=== PATIENT | female | born 1980 | race Caucasian/White ===

== ENCOUNTER 2022-07-07 19:50 | Emergency (ER) | payer MEDICARE, MEDICAID ==
[~2022-07-07] VITALS: Ht 154 cm; Wt 85.2 kg
[2022-07-07] MEDS ORDERED: ONDANSETRON 4 MG/2 ML (SDV) Z0FRAN IVP STA (20:07)
[2022-07-07] MEDS ORDERED: NS IV 1000 ML 1,000 ML IV STA (20:07)
[2022-07-07] MEDS ORDERED: PANTOPRAZOLE 40 MG (PROTONIX) VIAL IV STA (20:07)
--- NOTE | 2022-07-07 20:09 | ED GI ---
General Chief Complaint: Abdominal/GI Problems Stated Complaint: N/V/D Source of Information: Patient, EMS History of Present Illness Date Seen by Provider: Jul 07, 2022 Time Seen by Provider: 19:50 Initial Comments 41-year-old female presenting with complaints of 3 days of diffuse abdominal aching and cramping associated with nausea, vomiting, diarrhea. She states that she feels like she has not been able to keep things down and while she has been having diarrhea she has not been urinating. She states that she has not been around anyone for sick contacts as far she knows. She did have food delivered by a door dash delivery. She denies eating anything different or new prior to onset of symptoms. She called EMS tonight because she felt she could not keep anything down at home and was concerned for dehydration. Timing/Duration: 2-3 Days Severity/Quality: Moderate, Aching, Cramping Location: Generalized Abdomen Activities at Onset: None Modifying Factors: Worsens With Eating, Worsens With Movement, Worsens With Palpation Associated Symptoms: No Back Pain, No Chest Pain, No Diaphoresis, No Fever/Chills, No Fatigue, No Headache, No Heartburn; Nausea/Vomiting; No Shortness of Air, No Swelling/Mass in Abdomen, No Syncope, No Weakness Allergies and Home Medications Allergies Coded Allergies: No Known Drug Allergies (Unverified , 07/07/22) Patient Home Medication List Home Medication List Reviewed: Yes Ondansetron (Ondansetron Odt) 4 Mg Tab.rapdis, 4 MG PO Q6H PRN for NAUSEA/VOMITING Prescribed by: RYAN MOLINA on 07/07/222202 Review of Systems Review of Systems Constitutional: see HPI EENTM: No Symptoms Reported Respiratory: No Symptoms Reported Cardiovascular: No Symptoms Reported Gastrointestinal: See HPI Genitourinary: Denies Pain; Other (felt she had decreased urine output) Musculoskeletal: no symptoms reported Skin: No rash Psychiatric/Neurological: No Symptoms Reported Endocrine: No Symptoms Reported Past Mdquzhk-Cpjvme-Ajgnho Hx Patient Social History Tobacco Use?: No Use of E-Cig and/or Vaping dev: No Substance use?: No Alcohol Use?: No Immunizations Up To Date First/Initial COVID19 Vaccinat: 2020 Second COVID19 Vaccination Daniel: 2020 Third COVID19 Vaccination Date: 2021 Past Medical History Surgery/Hospitalization HX: hypothyroid Physical Exam Vital Signs Vital Signs - First Documented 07/07/22 19:50 Temp 37.0 Pulse 97 Resp 20 B/P (MAP) 110/63 (79) Pulse Ox 94 O2 Delivery Room Air Capillary Refill : Height/Weight/BMI Height: '" Weight: lbs. oz. kg; BMI Method: General Appearance: no apparent distress, obese HEENT: No PERRL/EOMI (nystagmus that patient reports is chronic) Neck: non-tender, full range of motion, supple, normal inspection Respiratory: chest non-tender, lungs clear, normal breath sounds, no respir atory distress, no accessory muscle use Cardiovascular: normal peripheral pulses, regular rate, rhythm Gastrointestinal: soft, no pulsatile mass, abnormal bowel sounds (hypoactive); No distended, No guarding, No rebound; tenderness (diffuse tenderness to palpation) Rectal: deferred Extremities: normal range of motion, non-tender, normal capillary refill Neurologic/Psychiatric: alert, oriented x 3 Skin: normal color, warm/dry Progress/Results/Core Measures Results/Orders Lab Results Laboratory Tests Test 07/07/22 19:50 07/07/22 21:27 Range/Units White Blood Count 5.1 4.3-11.0 10^3/uL Red Blood Count 5.14 H 3.80-5.11 10^6/uL Hemoglobin 15.9 11.5-16.0 g/dL Hematocrit 46 35-52 % Mean Corpuscular Volume 89 80-99 fL Mean Corpuscular Hemoglobin 31 25-34 pg Mean Corpuscular Hemoglobin Concent 35 32-36 g/dL Red Cell Distribution Width 12.2 10.0-14.5 % Platelet Count 217 130-400 10^3/uL Mean Platelet Volume 9.6 9.0-12.2 fL Immature Granulocyte % (Auto) 0 % Neutrophils (%) (Auto) 56 42-75 % Lymphocytes (%) (Auto) 32 12-44 % Monocytes (%) (Auto) 9 0-12 % Eosinophils (%) (Auto) 2 0-10 % Basophils (%) (Auto) 1 0-10 % Neutrophils # (Auto) 2.9 1.8-7.8 10^3/uL Lymphocytes # (Auto) 1.7 1.0-4.0 10^3/uL Monocytes # (Auto) 0.5 0.0-1.0 10^3/uL Eosinophils # (Auto) 0.1 0.0-0.3 10^3/uL Basophils # (Auto) 0.0 0.0-0.1 10^3/uL Immature Granulocyte # (Auto) 0.0 0.0-0.1 10^3/uL Sodium Level 133 L 135-145 MMOL/L Potassium Level 3.8 3.6-5.0 MMOL/L Chloride Level 99 98-107 MMOL/L Carbon Dioxide Level 19 L 21-32 MMOL/L Anion Gap 15 H 5-14 MMOL/L Blood Urea Nitrogen 32 H 7-18 MG/DL Creatinine 0.92 0.60-1.30 MG/DL Estimat Glomerular Filtration Rate 80 BUN/Creatinine Ratio 35 Glucose Level 132 H 70-105 MG/DL Calcium Level 9.9 8.5-10.1 MG/DL Corrected Calcium 9.5 8.5-10.1 MG/DL Total Bilirubin 1.3 H 0.1-1.0 MG/DL Aspartate Amino Transf (AST/SGOT) 375 H 5-34 U/L Alanine Aminotransferase (ALT/SGPT) 252 H 0-55 U/L Alkaline Phosphatase 110 40-136 U/L Total Protein 8.6 H 6.4-8.2 GM/DL Albumin 4.5 3.2-4.5 GM/DL Lipase 14 8-78 U/L Urine Color YELLOW Urine Clarity CLEAR Urine pH 5.5 5-9 Urine Specific [place] 1.010 L 1.016-1.022 Urine Protein TRACE H NEGATIVE Urine Glucose (UA) NEGATIVE NEGATIVE Urine Ketones 1+ H NEGATIVE Urine Nitrite NEGATIVE NEGATIVE Urine Bilirubin 1+ H NEGATIVE Urine Urobilinogen 0.2 < = 1.0 MG/DL Urine Leukocyte Esterase NEGATIVE NEGATIVE Urine RBC (Auto) 1+ H NEGATIVE Urine RBC NONE /HPF Urine WBC 2-5 /HPF Urine Squamous Epithelial Cells 2-5 /HPF Urine Crystals NONE /LPF Urine Bacteria NEGATIVE /HPF Urine Casts PRESENT /LPF Urine Hyaline Casts 2-5 H /LPF Urine Granular Casts 0-2 H /LPF Urine White Blood Cell Casts RARE H /LPF Urine Mucus SMALL H /LPF Urine Culture Indicated NO My Orders Orders - RYAN MOLINA MD Comprehensive Metabolic Panel (07/07/22 20:07) Lipase (07/07/22 20:07) Ua Culture If Indicated (07/07/22 20:07) Ed Iv/Invasive Line Start (07/07/22 20:07) Cbc With Automated Diff (07/07/22 20:07) Ct Abdomen/Pelvis W (07/07/22 20:07) Ns Iv 1000 Ml (Sodium Chloride 0.9%) (07/07/22 20:07) Ondansetron Injection (Zofran Injectio (07/07/22 20:07) Pantoprazole Injection (Protonix Injecti (07/07/22 20:07) Iohexol Injection (Omnipaque 350 Mg/Ml 1 (07/07/22 20:30) Received Contrast (Hold Metformin- Contr (07/07/22 20:30) Sodium Chloride Flush (Catheter Flush Sy (07/07/22 20:30) Ns (Ivpb) (Sodium Chloride 0.9% Ivpb Bag (07/07/22 20:30) Rx-Ondansetron Po (Rx-Zofran Po) (07/07/22 22:00) Medications Given in ED Current Medications Medications Dose Ordered Sig/Janiya Route Start Time Stop Time Status Last Admin Dose Admin Iohexol 100 ml ONCE ONCE IV 07/07/22 20:30 07/07/22 20:31 DC 07/07/22 20:45 80 ML Sodium Chloride 10 ml NEEDED PRN IV 07/07/22 20:30 07/07/22 20:46 10 ML Sodium Chloride 100 ml ONCE ONCE IV 07/07/22 20:30 07/07/22 20:31 DC 07/07/22 20:46 100 ML Vital Signs/I&O 07/07/22 19:50 Temp 37.0 Pulse 97 Resp 20 B/P (MAP) 110/63 (79) Pulse Ox 94 O2 Delivery Room Air Progress Progress Note #1: Progress Note Potential diagnosis of bowel obstruction, gastroenteritis, gastritis, hepatitis, colitis, diverticulitis, pyelonephritis, cystitis. We will obtain peripheral IV access and send labs for complete blood count, comprehensive metabolic profile, lipase. Urinalysis to look for signs of dehydration or infection. CT scan of the abdomen and pelvis with IV contrast to help look for signs of obstruction or intra-abdominal pathology causing her symptoms. Normal saline 1 L IV fluid bolus for hydration, Protonix 40 mg IV for possible gastritis, Zofran 4 mg IV for nausea and vomiting. Progress Note #2: Progress Note On recheck of the patient she reports feeling better and her nausea was resolved although she has not been anything on her stomach. Her abdominal cramping and aching pain was improved. I reviewed with her that her blood work did not show any acute significant abnormality on her blood count. She had a normal white blood cell count of 5.1. Her electrolytes had looked okay without acute significant abnormality. She did have mild elevation of her liver function tests with a total bilirubin of 1.3, AST 375, ALT 252 but lipase was negative at 14. She felt like she was improving as she was getting IV fluids and treatment. Awaiting CT scan of the abdomen and pelvis. On my review of the CT scan of abdomen/pelvis with IV contrast, I did not appreciate any acute obstruction, free air, fluid collection. Progress Note #3: Progress Note She was able to get up to urinate without worsening problems. Will try ice chips and if she is doing ok with that will discharge with Zofran ODT take home pack 4 mg po q 6 hours prn n/v. Send script to pharmacy to continue this an additional 2 days if needed. Liquid diet for 24 to 48 hours and then advance as tolerated. Diagnostic Imaging Diagonstic Imaging: CT Plain Films/CT/US/NM/MRI: abdomen, pelvis Comments NAME: NORMA ESTRADA [facility] REC#: [id number] PT STATUS: REG ER : 1980 PHYSICIAN: RYAN MOLINA MD ADMIT DATE: 07/07/22/ER FS Draft Date of Exam:07/07/22 CT ABDOMEN/PELVIS W EXAMINATION: CT abdomen and pelvis with intravenous contrast. TECHNIQUE: Multiple contiguous axial images were obtained through the abdomen and pelvis after the uneventful administration of intravenous contrast. All CT scans use one or more of the following dose optimizing techniques: automated exposure control, MA and/or KvP adjustment based on patient size and exam type or iterative reconstruction. HISTORY: Abdominal pain COMPARISON: None available. FINDINGS: Limited views of the lower thorax are unremarkable. The liver is normal without focal lesion. There is no biliary ductal dilation. Gallbladder is absent. Pancreas is normal. Spleen is normal. Adrenal glands are normal. There is a small cyst in the right kidney. No suspicious renal lesion. There is no hydronephrosis. Urinary bladder is normal. Bowel is normal in caliber without obstruction or inflammation. The appendix is normal. No free fluid or air. No abdominal or pelvic lymphadenopathy. Aorta is normal in caliber without aneurysm. There are no suspicious osseus lesions. IMPRESSION: 1. No acute abnormality in the abdomen or pelvis. Dictated on workstation # [id number] Dict: 07/07/222054 Trans: 07/07/222103 [facility] [id number] Interpreted by: ANNALEE ERICKSON MD Electronically signed by: Reviewed: Reviewed by Me Departure Impression Primary Impression: Diffuse abdominal pain Additional Impression: Nausea vomiting and diarrhea Disposition: HOME, SELF-CARE Condition: Improved Departure-Patient Inst. Decision time for Depature: 21:57 Referrals: [facility] Patient Instructions: Abdominal Pain, Adult ED, CLEAR LIQUID DIET ADULT/CHILD, Diarrhea, Adult ED, Full Liquid Diet, Nausea and Vomiting, Adult ED Add. Discharge Instructions: Try to keep sipping on fluids and stay well-hydrated. Use the dissolving nausea tablets, Zofran or ondansetron, to help keep your stomach settled. Check back with the clinic if having continued concerns. If having worsening symptoms or unable to keep anything down he may need to be reevaluated or get additional IV fluids and possible admission to a hospital somewhere if your symptoms are not responding to the medication. All discharge instructions reviewed with patient and/or family. Voiced understanding. Scripts Ondansetron (Ondansetron Odt) 4 Mg Tab.rapdis 4 MG PO Q6H PRN for NAUSEA/VOMITING for 2 Days, #8 TAB 0 Refills Prov: RYAN MOLINA MD 07/07/22 RYAN MOLINA MD Jul 07, 2022 20:09
[2022-07-07 20:16] LABS: BASOPHILS % (AUTO) 1 % (0-10); EOSINOPHILS # (AUTO) 0.1 10^3/uL (0.0-0.3); EOSINOPHILS % (AUTO) 2 % (0-10); HEMATOCRIT 46 % (35-52); HEMOGLOBIN 15.9 g/dL (11.5-16.0); LYMPHOCYTES # (AUTO) 1.7 10^3/uL (1.0-4.0); LYMPHOCYTES % (AUTO) 32 % (12-44); MEAN CORPUSCULAR HEMOGLOBIN 31 pg (25-34); MEAN CORPUSCULAR HGB CONC 35 g/dL (32-36); MEAN CORPUSCULAR VOLUME 89 fL (80-99); MEAN PLATELET VOLUME 9.6 fL (9.0-12.2); MONOCYTES # (AUTO) 0.5 10^3/uL (0.0-1.0); MONOCYTES % (AUTO) 9 % (0-12); NEUTROPHILS # (AUTO) 2.9 10^3/uL (1.8-7.8); NEUTROPHILS % (AUTO) 56 % (42-75); PLATELET COUNT 217 10^3/uL (130-400); WHITE BLOOD COUNT 5.1 10^3/uL (4.3-11.0)
[2022-07-07 20:27] LABS: POTASSIUM 3.8 MMOL/L (3.6-5.0)
[2022-07-07 20:28] LABS: ALBUMIN 4.5 GM/DL (3.2-4.5); BILIRUBIN,TOTAL 1.3 MG/DL (0.1-1.0); CALCIUM 9.9 MG/DL (8.5-10.1); CREATININE SERUM 0.92 MG/DL (0.60-1.30); TOTAL PROTEIN 8.6 GM/DL (6.4-8.2)
[2022-07-07] MEDS ORDERED: NS 100 ML (IVPB) BAG IV ONE (20:30)
[2022-07-07] MEDS ORDERED: IOHEXOL 350 MG/ML 100 ML (OMNIPAQUE 350) VIAL IV ONE (20:30)
[2022-07-07] MEDS ORDERED: HOLD METFORMIN - RECEIVED CONTRAST 20 ML VIAL IV SCH (20:30)
[2022-07-07] MEDS ORDERED: CATHETER FLUSH 10 ML SYR IV PRN (20:30)
--- NOTE | 2022-07-07 21:05 | Diagnostic Imaging Report ---
EXAMINATION: CT abdomen and pelvis with intravenous contrast. TECHNIQUE: Multiple contiguous axial images were obtained through the abdomen and pelvis after the uneventful administration of intravenous contrast. All CT scans use one or more of the following dose optimizing techniques: automated exposure control, MA and/or KvP adjustment based on patient size and exam type or iterative reconstruction. HISTORY: Abdominal pain COMPARISON: None available. FINDINGS: Limited views of the lower thorax are unremarkable. The liver is normal without focal lesion. There is no biliary ductal dilation. Gallbladder is absent. Pancreas is normal. Spleen is normal. Adrenal glands are normal. There is a small cyst in the right kidney. No suspicious renal lesion. There is no hydronephrosis. Urinary bladder is normal. Bowel is normal in caliber without obstruction or inflammation. The appendix is normal. No free fluid or air. No abdominal or pelvic lymphadenopathy. Aorta is normal in caliber without aneurysm. There are no suspicious osseus lesions. IMPRESSION: 1. No acute abnormality in the abdomen or pelvis. Dictated by: Dictated on workstation # [id number]
[2022-07-07 21:34] LABS: CLARITY,URINE CLEAR; COLOR,URINE YELLOW; GLUCOSE, URINE (UA) NEGATIVE (NEGATIVE); KETONES,URINE 1+ (NEGATIVE); LEUKOCYTE ESTERASE ,URINE NEGATIVE (NEGATIVE); NITRITE,URINE NEGATIVE (NEGATIVE); PH,URINE 5.5 (5-9); PROTEIN,URINE TRACE (NEGATIVE)
[2022-07-07 21:44] LABS: BACTERIA,URINE NEGATIVE /HPF; BILIRUBIN,URINE 1+ (NEGATIVE)
[2022-07-07 21:45] LABS: GRANULAR CASTS,URINE 0-2 /LPF; WHITE BLOOD CELL CASTS, URINE RARE /LPF
[2022-07-07] MEDS ORDERED: RX-ONDANSETRON 4 MG ODT (ZOFRAN) PPK #4 PO PRN (22:00)
[2022-07-07] MEDS ORDERED: ONDA4TAB11 PO (22:03)
[2022-07-07 22:23] VITALS: BP 98/63
== END 2022-07-07 22:25 | disposition home or self-care (01) ==
LOC: ER FS 19:51
DX: R10.84 Generalized abdominal pain (principal); R19.7 Diarrhea, unspecified; R11.2 Nausea with vomiting, unspecified; E80.7 Disorder of bilirubin metabolism, unspecified; R79.89 Other specified abnormal findings of blood chemistry
CPT/HCPCS: 36415; 74177; 80053; 81000; 83690; 85025